=== PATIENT | female | born 1960 | race Caucasian/White ===

== ENCOUNTER → 2021-01-09 | Outpatient (CLI) | payer OTHER ==
[~2021-01-09] MED LIST: AMLODIPINE BESYL5 MG PO; ATENOLOL25 MG PO; CHILDREN'S ASPI81 MG PO; HYDROCODON-ACE1 EAC2 PO; LISINOPRIL40 MG PO; TRAZODONE HCL150 MG PO; WELLBUTRIN XL150 MG PO
== END ==
LOC: KOH-I 01-02 15:30
DX: M23.41 Loose body in knee, right knee (principal); M17.11 Unilateral primary osteoarthritis, right knee
CPT/HCPCS: 73700

== ENCOUNTER → 2021-02-20 | Outpatient (CLI) | payer OTHER | LOC: OPSV 10:00 | DX: Z01.812 Encounter for preprocedural laboratory examination (principal); Z53.8 Procedure and treatment not carried out for other reasons; M17.11 Unilateral primary osteoarthritis, right knee | CPT/HCPCS: G0463 ==

== ENCOUNTER → 2021-03-01 | Outpatient (CLI) | payer SELFPAY ==
[~2021-03-01] MED LIST changes: +CLINDAMYCIN HC300 MG PO; +ELIQUIS 5 MG TAB5 MG PO; +ELIQUIS5 MG PO; +LISINOPRIL-HCT1 EAC2 PO; +ROXICODONE15 MG PO
[2021-03-01 10:40] LABS: RED BLOOD COUNT 4.94 M/UL (4.00-5.10); WHITE BLOOD COUNT 8.1 K/UL (4.5-11.0)
[2021-03-01 10:58] LABS: BUN/CREATININE RATIO 13 (0-10)
== END ==
LOC: OPSV2 09:57
PROVIDERS: Orthopaedic Surgery
DX: Z01.818 Encounter for other preprocedural examination (principal); M17.11 Unilateral primary osteoarthritis, right knee
CPT/HCPCS: 36415; 71046; 80048; 81001; 85025; 87081; 93005

== ENCOUNTER → 2021-03-12 | Outpatient (CLI) | payer OTHER ==
[2021-03-12 10:27] LABS: BUN/CREATININE RATIO 11 (0-10)
== END ==
LOC: LAB 09:44
PROVIDERS: Orthopaedic Surgery
DX: Z01.812 Encounter for preprocedural laboratory examination (principal)
CPT/HCPCS: 36415; 80048; 86850; 86900; 86901

== ENCOUNTER 2021-03-13 06:49 | Inpatient (IN) | payer OTHER ==
[~2021-03-13] VITALS: Ht 157.5 cm; Wt 77.1 kg
[~2021-03-13 06:49] MED LIST changes: -CLINDAMYCIN HC300 MG PO; -ELIQUIS 5 MG TAB5 MG PO; -ELIQUIS5 MG PO; -HYDROCODON-ACE1 EAC2 PO; -LISINOPRIL-HCT1 EAC2 PO; -ROXICODONE15 MG PO; -TRAZODONE HCL150 MG PO
[2021-03-13] MEDS ORDERED: TRAZODONE HCL150 MG PO (07:22)
[2021-03-13] MEDS ORDERED: HYDROCODON-ACE1 EAC2 PO (14:13)
[2021-03-14 04:14] LABS: HEMOGLOBIN 11.1 gm/dl (12.3-15.3); RED BLOOD COUNT 3.72 M/UL (4.00-5.10); WHITE BLOOD COUNT 16.7 K/UL (4.5-11.0)
[2021-03-15 03:02] LABS: HEMOGLOBIN 10.1 gm/dl (12.3-15.3)
[2021-03-15 03:04] LABS: RED BLOOD COUNT 3.34 M/UL (4.00-5.10); WHITE BLOOD COUNT 11.6 K/UL (4.5-11.0)
[2021-03-16 03:13] LABS: HEMOGLOBIN 10.5 gm/dl (12.3-15.3); RED BLOOD COUNT 3.51 M/UL (4.00-5.10); WHITE BLOOD COUNT 11.6 K/UL (4.5-11.0)
[2021-03-16 03:35] LABS: BUN/CREATININE RATIO 16 (0-10)
[2021-03-17 03:13] LABS: HEMOGLOBIN 10.1 gm/dl (12.3-15.3); RED BLOOD COUNT 3.41 M/UL (4.00-5.10); WHITE BLOOD COUNT 10.2 K/UL (4.5-11.0)
[2021-03-17 03:30] LABS: BUN/CREATININE RATIO 14 (0-10)
[2021-03-18 05:22] LABS: HEMOGLOBIN 10.4 gm/dl (12.3-15.3); RED BLOOD COUNT 3.48 M/UL (4.00-5.10); WHITE BLOOD COUNT 9.1 K/UL (4.5-11.0)
[2021-03-18 05:35] LABS: BUN/CREATININE RATIO 13 (0-10)
[2021-03-19 04:16] LABS: HEMOGLOBIN 10.3 gm/dl (12.3-15.3); RED BLOOD COUNT 3.44 M/UL (4.00-5.10); WHITE BLOOD COUNT 9.3 K/UL (4.5-11.0)
[2021-03-19 04:48] LABS: BUN/CREATININE RATIO 14 (0-10)
[2021-03-20 06:33] LABS: BUN/CREATININE RATIO 14 (0-10)
[2021-03-20] MEDS ORDERED: ELIQUIS 5 MG TAB5 MG PO (17:18)
[2021-03-20] MEDS ORDERED: ELIQUIS5 MG PO (17:18)
[2021-05-03] MEDS ORDERED: HYDROCODON-ACE1 EAC2 PO (09:33)
[2021-05-03] MEDS ORDERED: LISINOPRIL-HCT1 EAC2 PO (09:34)
[2021-05-05] MEDS ORDERED: HYDROCODON-ACE1 EAC2 PO (08:40)
[2021-05-17] MEDS ORDERED: ROXICODONE15 MG PO (08:47)
== END 2021-03-20 17:51 | disposition home health service (06) | DRG 469 ==
LOC: OR 06:49 → EDSTATUS 09:15 → M/S 17:07 → OR 17:07 → M/S 03-15 14:05
PROVIDERS: Internal Medicine; ADMIT Orthopaedic Surgery
PROC: 0SRC0J9 Replacement of Right Knee Joint with Synthetic Substitute, Cemented, Open Approach (ICD-10-PCS; principal; 2021-03-13 09:15)
PROC: B24BZZ4 Ultrasonography of Heart with Aorta, Transesophageal (ICD-10-PCS; 2021-03-15)
DX: M17.11 Unilateral primary osteoarthritis, right knee (principal); J96.01 Acute respiratory failure with hypoxia; I26.99 Other pulmonary embolism without acute cor pulmonale; N17.9 Acute kidney failure, unspecified; J98.11 Atelectasis; Z20.822 Contact with and (suspected) exposure to COVID-19; M23.41 Loose body in knee, right knee; G89.29 Other chronic pain; R11.2 Nausea with vomiting, unspecified; I10 Essential (primary) hypertension; F41.9 Anxiety disorder, unspecified; F32.9 Major depressive disorder, single episode, unspecified; I07.1 Rheumatic tricuspid insufficiency; Z96.651 Presence of right artificial knee joint; Z90.49 Acquired absence of other specified parts of digestive tract; Z88.0 Allergy status to penicillin; Z88.1 Allergy status to other antibiotic agents; Z79.82 Long term (current) use of aspirin; Z79.899 Other long term (current) drug therapy; Z56.0 Unemployment, unspecified; Z90.710 Acquired absence of both cervix and uterus; Z82.49 Family history of ischemic heart disease and other diseases of the circulatory system; Z88.2 Allergy status to sulfonamides
CPT/HCPCS: ECHO; 36415; 71045; 71275; 73560; 80048; 81001; 83880; 85025; 85027; 85379; 86850; 86900; 86901; 93306; 93971; 97110-GP-CQ; 97116-GP-CQ; 97161; 97166; 97535; C1776; J0360; J1100; J1170; J1885; J1940; J2001; J2250; J2270; J2405; J2550; J2704; J2795; J3010; J3370; J7120; Q9967

== ENCOUNTER 2021-03-21 16:29 | Observation (INO) | payer OTHER ==
[~2021-03-21] VITALS: Ht 157.5 cm; Wt 82.6 kg
[~2021-03-21 16:29] MED LIST changes: +ELIQUIS 5 MG TAB5 MG PO; +ELIQUIS5 MG PO; +HYDROCODON-ACE1 EAC2 PO; +TRAZODONE HCL150 MG PO
[2021-03-21 19:40] LABS: HEMOGLOBIN 11.6 gm/dl (12.3-15.3)
[2021-03-21 19:43] LABS: RED BLOOD COUNT 3.85 M/UL (4.00-5.10); WHITE BLOOD COUNT 12.3 K/UL (4.5-11.0)
[2021-03-21 20:12] LABS: BUN/CREATININE RATIO 14 (0-10)
[2021-03-22 03:41] LABS: HEMOGLOBIN 10.7 gm/dl (12.3-15.3); RED BLOOD COUNT 3.58 M/UL (4.00-5.10); WHITE BLOOD COUNT 10.3 K/UL (4.5-11.0)
[2021-03-22 04:39] LABS: BUN/CREATININE RATIO 15 (0-10)
[2021-03-23 07:02] LABS: HEMOGLOBIN 10.7 gm/dl (12.3-15.3); RED BLOOD COUNT 3.76 M/UL (4.00-5.10); WHITE BLOOD COUNT 9.3 K/UL (4.5-11.0)
[2021-03-23 07:05] LABS: BUN/CREATININE RATIO 13 (0-10)
[2021-03-23] MEDS ORDERED: CLINDAMYCIN HC300 MG PO (13:59)
[2021-05-03] MEDS ORDERED: HYDROCODON-ACE1 EAC2 PO (09:33)
[2021-05-03] MEDS ORDERED: LISINOPRIL-HCT1 EAC2 PO (09:34)
[2021-05-05] MEDS ORDERED: HYDROCODON-ACE1 EAC2 PO (08:40)
[2021-05-17] MEDS ORDERED: ROXICODONE15 MG PO (08:47)
== END 2021-03-23 17:10 | disposition home or self-care (01) ==
LOC: ER1 16:29 → CDU 21:12 → M/S 21:12
PROVIDERS: Emergency Medicine; Internal Medicine; ADMIT Internal Medicine
DX: L03.115 Cellulitis of right lower limb (principal); I10 Essential (primary) hypertension; F41.9 Anxiety disorder, unspecified; M19.90 Unspecified osteoarthritis, unspecified site; F32.9 Major depressive disorder, single episode, unspecified; Z96.651 Presence of right artificial knee joint; Z86.711 Personal history of pulmonary embolism; Z88.0 Allergy status to penicillin; Z88.2 Allergy status to sulfonamides; Z20.822 Contact with and (suspected) exposure to COVID-19
CPT/HCPCS: 36415; 73562; 80048; 80053; 80202; 81001; 82607; 82728; 82746; 83540; 83550; 83605; 83735; 84466; 84703; 85025; 85027; 85652; 86140; 87040; 93971; 96374; 96375; 96376; 97116-GP-CQ; 97161; 99284; G0378; J1170; J2270; J2405; J3370; J7070; U0002

== ENCOUNTER → 2021-04-04 | Outpatient (CLI) | payer OTHER ==
[~2021-04-04] MED LIST changes: +CLINDAMYCIN HC300 MG PO
== END ==
LOC: US 13:30
DX: M79.661 Pain in right lower leg (principal); Z86.711 Personal history of pulmonary embolism; Z96.659 Presence of unspecified artificial knee joint
CPT/HCPCS: 93971

== ENCOUNTER → 2021-04-18 | Outpatient (CLI) | payer OTHER ==
[2021-04-18 17:14] LABS: RED BLOOD COUNT 4.46 M/UL (4.00-5.10); WHITE BLOOD COUNT 8.6 K/UL (4.5-11.0)
== END ==
LOC: LAB 16:19
PROVIDERS: Nurse Practitioner
DX: T84.84XA Pain due to internal orthopedic prosthetic devices, implants and grafts, initial encounter (principal); M25.461 Effusion, right knee
CPT/HCPCS: 36415; 85027; 85652; 86140

== ENCOUNTER 2021-04-26 12:09 | Emergency (ER) | payer OTHER ==
[2021-04-26 13:05] LABS: HEMOGLOBIN 13.1 gm/dl (12.3-15.3); RED BLOOD COUNT 4.39 M/UL (4.00-5.10); WHITE BLOOD COUNT 8.9 K/UL (4.5-11.0)
[2021-04-26 13:24] LABS: BUN/CREATININE RATIO 12 (0-10)
== END 2021-04-26 16:50 | disposition home or self-care (01) ==
LOC: ER1 12:09
PROVIDERS: Physician Assistant Medical
DX: M25.561 Pain in right knee (principal); Z96.651 Presence of right artificial knee joint; I10 Essential (primary) hypertension; Z86.711 Personal history of pulmonary embolism; Z88.0 Allergy status to penicillin; Z88.8 Allergy status to other drugs, medicaments and biological substances; Z79.82 Long term (current) use of aspirin; Z79.01 Long term (current) use of anticoagulants; Z90.710 Acquired absence of both cervix and uterus
CPT/HCPCS: 73564; 80053; 83605; 85025; 85652; 86140; 87040; 99283

== ENCOUNTER → 2021-05-05 | Day surgery (SDC) | payer OTHER ==
[~2021-05-05] MED LIST changes: +LISINOPRIL-HCT1 EAC2 PO
== END | disposition home or self-care (01) ==
LOC: OR 05:20
DX: M25.661 Stiffness of right knee, not elsewhere classified (principal); M76.9 Unspecified enthesopathy, lower limb, excluding foot; I26.99 Other pulmonary embolism without acute cor pulmonale; I10 Essential (primary) hypertension; F41.9 Anxiety disorder, unspecified; F32.9 Major depressive disorder, single episode, unspecified; F41.0 Panic disorder [episodic paroxysmal anxiety]; G43.909 Migraine, unspecified, not intractable, without status migrainosus; K57.30 Diverticulosis of large intestine without perforation or abscess without bleeding; Z96.651 Presence of right artificial knee joint; Z79.01 Long term (current) use of anticoagulants; Z79.899 Other long term (current) drug therapy; Z79.891 Long term (current) use of opiate analgesic; Z79.82 Long term (current) use of aspirin; Z90.710 Acquired absence of both cervix and uterus; Z88.0 Allergy status to penicillin; Z88.1 Allergy status to other antibiotic agents
CPT/HCPCS: 73562; 76000; J0592; J1100; J1170; J2001; J2250; J2704; J2795; J3010; J7120

== ENCOUNTER 2021-05-22 14:59 | Emergency (ER) | payer OTHER ==
[~2021-05-22 14:59] MED LIST changes: +ROXICODONE15 MG PO
[2021-05-22 16:31] LABS: HEMOGLOBIN 13.5 gm/dl (12.3-15.3); RED BLOOD COUNT 4.58 M/UL (4.00-5.10); WHITE BLOOD COUNT 14.7 K/UL (4.5-11.0)
[2021-05-22] MEDS ORDERED: ELIQUIS5 MG PO (19:40)
== END 2021-05-22 19:50 | disposition home or self-care (01) ==
LOC: ER1 14:59
PROVIDERS: Emergency Medicine
DX: R06.00 Dyspnea, unspecified (principal); R10.9 Unspecified abdominal pain; F41.9 Anxiety disorder, unspecified; E87.6 Hypokalemia; Z86.711 Personal history of pulmonary embolism; Z20.822 Contact with and (suspected) exposure to COVID-19
CPT/HCPCS: 71045; 80053; 81001; 82550; 82553; 83690; 83874; 84484; 85025; 85379; 99285; Q9967; U0002

== ENCOUNTER → 2021-06-09 | Outpatient (CLI) | payer OTHER | LOC: KOH-I 11:59 | DX: M54.50 Low back pain, unspecified (principal); M51.36 Other intervertebral disc degeneration, lumbar region | CPT/HCPCS: 72100 ==

== ENCOUNTER 2021-06-20 16:24 | Emergency (ER) | payer OTHER ==
[2021-06-20 18:22] LABS: RED BLOOD COUNT 4.63 M/UL (4.00-5.10); WHITE BLOOD COUNT 8.9 K/UL (4.5-11.0)
[2021-06-20 18:44] LABS: BUN/CREATININE RATIO 10 (0-10)
[2021-06-20] MEDS ORDERED: IBUPROFEN600 MG PO (19:02)
== END 2021-06-20 19:35 | disposition home or self-care (01) ==
LOC: ER1 16:24
PROVIDERS: Physician Assistant Medical
DX: M25.561 Pain in right knee (principal); I10 Essential (primary) hypertension; Z79.82 Long term (current) use of aspirin; Z88.1 Allergy status to other antibiotic agents; Z79.01 Long term (current) use of anticoagulants; Z96.651 Presence of right artificial knee joint
CPT/HCPCS: 80053; 85025; 85652; 86140; 93970; 96374; 96375; 99284; J2270; J2405

== ENCOUNTER 2021-06-28 15:54 | Emergency (ER) | payer OTHER ==
[~2021-06-28 15:54] MED LIST changes: +IBUPROFEN600 MG PO
[2021-06-28] MEDS ORDERED: TYLENOL325 MG PO (18:15)
[2021-06-28] MEDS ORDERED: Voltaren Gel 1 % TOP (18:15)
== END 2021-06-28 19:01 | disposition home or self-care (01) ==
LOC: ER1 15:54
DX: S83.91XA Sprain of unspecified site of right knee, initial encounter (principal); I10 Essential (primary) hypertension; Z96.651 Presence of right artificial knee joint; Z88.0 Allergy status to penicillin; Z88.1 Allergy status to other antibiotic agents; Z88.2 Allergy status to sulfonamides; Z79.01 Long term (current) use of anticoagulants; Z79.899 Other long term (current) drug therapy; W10.9XXA Fall (on) (from) unspecified stairs and steps, initial encounter
CPT/HCPCS: 29530; 73080; 73562; 73590; 73610; 96372; 99283; J1885

== ENCOUNTER 2021-12-05 14:37 | Inpatient (IN) | payer OTHER ==
[~2021-12-05] VITALS: Ht 157.5 cm; Wt 72.7 kg
[~2021-12-05 14:37] MED LIST changes: -AMLODIPINE BESYL5 MG PO; +ASPIRIN EC81 MG PO; -CHILDREN'S ASPI81 MG PO; +CIPRO500 MG PO; +CLEOCIN HCL300 MG PO; +HYDROCODON-ACE1 EAC4 PO; -LISINOPRIL-HCT1 EAC2 PO; +TYLENOL325 MG PO; +Voltaren Gel 1 % TOP; -WELLBUTRIN XL150 MG PO; +ZOFRAN 4 MG TAB4 MG PO
[2021-12-05 16:04] LABS: HEMOGLOBIN 13.5 gm/dl (12.3-15.3); RED BLOOD COUNT 4.58 M/UL (4.00-5.10); WHITE BLOOD COUNT 11.5 K/UL (4.5-11.0)
[2021-12-05 16:53] LABS: BUN/CREATININE RATIO 12 (0-10)
--- NOTE | 2021-12-06 01:03 | NUR ---
PATIENT ASKED THE TECH KAREN TO SPEAK TO A CHARGE NURSE REGARDING PAIN MEDICATION. I WENT AND SPOKE WITH THE PATIENT, SHE IS RATING HER PAIN 8/10 ON A NUMERIC SCALE. SHE GETS MORPHINE 2 MG Q6HP, WITH THE NEXT DOSE NOT BEING DUE UNTIL [address] CASTELLANOS OF THE PATIENTS PAIN AND THAT SHE IS REQUESTING SOMETHING MORE. NO NEW ORDERS WERE GIVEN. NOTIFIED EXTERNAL GRINDER TOOL OF SITUATION. EXPLAINED TO PATIENT THAT I WAS NOT GIVEN NEW ORDERS FOR PAIN MEDICATION. PATIENT VERBALIZED UNDERSTANDING.
[2021-12-06 03:05] LABS: HEMOGLOBIN 12.3 gm/dl (12.3-15.3); RED BLOOD COUNT 4.27 M/UL (4.00-5.10); WHITE BLOOD COUNT 9.9 K/UL (4.5-11.0)
[2021-12-06 03:32] LABS: BUN/CREATININE RATIO 12 (0-10)
[2021-12-06] MEDS ORDERED: AMLODIPINE BESYL5 MG PO (10:37)
[2021-12-06] MEDS ORDERED: WELLBUTRIN XL150 MG PO (10:38)
--- NOTE | 2021-12-06 14:36 | NUR ---
1436- PT STATES HYDROCODONE 7.5 MG IS NOT WORKING FOR HER PAIN. NOTIFIED DR MCCONNELL. ORDER FOR ONE TIME DOSE OF DILAUDID 0.5MG ONCE. WILL CONTINUE TO MONITOR.
[2021-12-06] MEDS ORDERED: ALENDRONATE SOD70 MG PO (14:51)
[2021-12-06] MEDS ORDERED: HYDROCHLOROTHIA25 MG PO (14:52)
[2021-12-06] MEDS ORDERED: LORAZEPAM0.5 MG PO (14:54)
[2021-12-06] MEDS ORDERED: SERTRALINE HCL25 MG PO (14:54)
[2021-12-06] MEDS ORDERED: CLINDAMYCIN HC300 MG PO (15:19)
[2021-12-06] MEDS ORDERED: CIPROFLOXACIN500 M1 PO (15:19)
[2021-12-07 03:37] LABS: HEMOGLOBIN 12.5 gm/dl (12.3-15.3); RED BLOOD COUNT 4.32 M/UL (4.00-5.10)
[2021-12-07 03:45] LABS: WHITE BLOOD COUNT 6.7 K/UL (4.5-11.0)
[2021-12-07 04:30] LABS: BUN/CREATININE RATIO 10 (0-10)
[2021-12-08 03:18] LABS: HEMOGLOBIN 12.5 gm/dl (12.3-15.3); RED BLOOD COUNT 4.24 M/UL (4.00-5.10); WHITE BLOOD COUNT 7.1 K/UL (4.5-11.0)
[2021-12-08 03:36] LABS: BUN/CREATININE RATIO 8 (0-10)
[2021-12-08] MEDS ORDERED: HYDROCODON-ACE1 EAC4 PO (10:14)
[2021-12-08] MEDS ORDERED: ZOFRAN ODT 4 MG4 MG SL (10:14)
== END 2021-12-08 11:30 | disposition home or self-care (01) | DRG 392 ==
LOC: ER1 14:37 → CDU 18:09 → M/S 18:09
PROVIDERS: Emergency Medicine; Physician Assistant; ADMIT Internal Medicine
DX: K57.32 Diverticulitis of large intestine without perforation or abscess without bleeding (principal); I10 Essential (primary) hypertension; E66.01 Morbid (severe) obesity due to excess calories; F32.A Depression, unspecified; Z20.822 Contact with and (suspected) exposure to COVID-19; Z96.651 Presence of right artificial knee joint; Z86.711 Personal history of pulmonary embolism; Z79.01 Long term (current) use of anticoagulants; Z90.49 Acquired absence of other specified parts of digestive tract; Z98.890 Other specified postprocedural states; Z90.710 Acquired absence of both cervix and uterus; Z88.0 Allergy status to penicillin; Z88.1 Allergy status to other antibiotic agents; Z83.3 Family history of diabetes mellitus; Z68.29 Body mass index [BMI] 29.0-29.9, adult
CPT/HCPCS: 36415; 80048; 80053; 81001; 83690; 83735; 85025; 96374; 96375; 96376; 99285; J0360; J1170; J1956; J2185; J2270; J2405; Q9967; U0002

== ENCOUNTER → 2021-12-13 | Outpatient (CLI) | payer OTHER ==
[~2021-12-13] MED LIST changes: +ALENDRONATE SOD70 MG PO; +AMLODIPINE BESYL5 MG PO; +CIPROFLOXACIN500 M1 PO; +HYDROCHLOROTHIA25 MG PO; +LORAZEPAM0.5 MG PO; +SERTRALINE HCL25 MG PO; +WELLBUTRIN XL150 MG PO; +ZOFRAN ODT 4 MG4 MG SL
[2021-12-13 10:33] LABS: HEMOGLOBIN 12.8 gm/dl (12.3-15.3); RED BLOOD COUNT 4.47 M/UL (4.00-5.10); WHITE BLOOD COUNT 5.7 K/UL (4.5-11.0)
[2021-12-13 10:49] LABS: BUN/CREATININE RATIO 10 (0-10)
== END ==
LOC: OPSV2 09:00
PROVIDERS: Anesthesiology
DX: Z01.818 Encounter for other preprocedural examination (principal); I10 Essential (primary) hypertension
CPT/HCPCS: 36415; 80048; 85025; 93005

== ENCOUNTER 2021-12-19 05:00 | Inpatient (IN) | payer OTHER ==
[~2021-12-19] VITALS: Ht 157.5 cm; Wt 74.4 kg
--- NOTE | 2021-12-19 15:17 | NUR ---
CONTACTED AT THIS TIME TO LET HIM KNOW THAT THE PATIENT AHD MULTIPLE BLOOD CLOTS IN HER STOOL AT THIS TIME. HE STATES THAT THERE IS NOTHING TO DO AT THIS TIME. PATIENT VITALS STABLE.
--- NOTE | 2021-12-20 03:40 | NUR ---
FOUND BED BUG IN ROOM PT STATED HER FAMILY FOUND ONE AND FLUSHED IT DOWN THE TOILET. MARLYN WHEAT NOTIFIED AND APPROVED PT TO VISIT THIS AM. THE PATIENT WAS MADE AWARE AND EDUCATED ON CONTACT PRECAUTIONS.
--- NOTE | 2021-12-21 18:13 | NUR ---
PATIENT CALLED ME TO HER ROOM AT THIS TIME DUE TO A BLOODY BOWEL MOVEMENT. PATIENT IS NOTED TO HAVE A MODERATE AMOUNT OF BLOOD IN THE TOILET. CONTACTED AT THIS TIME AND HE STATES TO TELL THE PATIENT NOT TO WORRY AT THIS TIME AND GAVE NO NEW ORDERS. HE STATES TO MONITOR VITAL SIGNS FOR CHAGNES ONLY.
[2021-12-22] MEDS ORDERED: HYDROCODON-ACE1 EAC4 PO (08:54)
== END 2021-12-22 12:04 | disposition home or self-care (01) | DRG 331 ==
LOC: OR 05:00 → MED SURG 4 05:01 → OR 09:30 → MED SURG 4 13:40 → OR 13:40 → MED SURG 4 12-22 12:04
PROVIDERS: ADMIT Surgery
PROC: 0DBN4ZZ Excision of Sigmoid Colon, Percutaneous Endoscopic Approach (ICD-10-PCS; 2021-12-19)
PROC: 0DBM4ZZ Excision of Descending Colon, Percutaneous Endoscopic Approach (ICD-10-PCS; principal; 2021-12-19 09:30)
DX: K57.32 Diverticulitis of large intestine without perforation or abscess without bleeding (principal); F41.9 Anxiety disorder, unspecified; M19.91 Primary osteoarthritis, unspecified site; F32.A Depression, unspecified; I10 Essential (primary) hypertension; G43.909 Migraine, unspecified, not intractable, without status migrainosus; K21.9 Gastro-esophageal reflux disease without esophagitis; Z96.651 Presence of right artificial knee joint; K76.0 Fatty (change of) liver, not elsewhere classified; M17.10 Unilateral primary osteoarthritis, unspecified knee; Z20.822 Contact with and (suspected) exposure to COVID-19; G89.18 Other acute postprocedural pain; Z88.8 Allergy status to other drugs, medicaments and biological substances; Z88.0 Allergy status to penicillin; Z79.82 Long term (current) use of aspirin; Z79.899 Other long term (current) drug therapy; Z90.49 Acquired absence of other specified parts of digestive tract; Z90.710 Acquired absence of both cervix and uterus; Z98.890 Other specified postprocedural states; Z90.89 Acquired absence of other organs; Z82.49 Family history of ischemic heart disease and other diseases of the circulatory system; Z83.3 Family history of diabetes mellitus; Z82.61 Family history of arthritis; Z86.73 Personal history of transient ischemic attack (TIA), and cerebral infarction without residual deficits; Z86.718 Personal history of other venous thrombosis and embolism; Z87.11 Personal history of peptic ulcer disease; Z88.2 Allergy status to sulfonamides
CPT/HCPCS: J1100; J1170; J1644; J2001; J2185; J2250; J2270; J2370; J2405; J2704; J3010; J7120

== ENCOUNTER 2021-12-25 12:07 | Inpatient (IN) | payer OTHER ==
[~2021-12-25] VITALS: Ht 157.5 cm; Wt 74.4 kg
[2021-12-25 13:38] LABS: HEMOGLOBIN 10.6 gm/dl (12.3-15.3); RED BLOOD COUNT 3.6 M/UL (4.00-5.10); WHITE BLOOD COUNT 12.9 K/UL (4.5-11.0)
[2021-12-25 13:57] LABS: BUN/CREATININE RATIO 12 (0-10)
[2021-12-25] MEDS ORDERED: ONDANSETRON ODT4 MG PO (16:44)
[2021-12-25] MEDS ORDERED: HYDROCHLOROTHIA25 MG PO (16:45)
[2021-12-25] MEDS ORDERED: LORAZEPAM0.5 MG PO (16:47)
[2021-12-25] MEDS ORDERED: ASPIRIN EC81 MG PO (16:48)
[2021-12-26 08:12] LABS: RED BLOOD COUNT 3.39 M/UL (4.00-5.10)
[2021-12-26 08:13] LABS: WHITE BLOOD COUNT 8.2 K/UL (4.5-11.0)
[2021-12-26 08:39] LABS: BUN/CREATININE RATIO 10 (0-10)
--- NOTE | 2021-12-28 13:52 | NUR ---
reported to dr. moses patient vomiting episode and acknowledged. received new order
== END 2021-12-29 14:56 | disposition home or self-care (01) | DRG 357 ==
LOC: ER1 12:07 → CDU 16:11 → M/S 21:16
PROVIDERS: Emergency Medicine; ADMIT Surgery
PROC: 0W9F0ZZ Drainage of Abdominal Wall, Open Approach (ICD-10-PCS; principal; 2021-12-25)
DX: K94.02 Colostomy infection (principal); L03.311 Cellulitis of abdominal wall; Y83.8 Other surgical procedures as the cause of abnormal reaction of the patient, or of later complication, without mention of misadventure at the time of the procedure; I10 Essential (primary) hypertension; E87.6 Hypokalemia; F32.A Depression, unspecified; Z90.49 Acquired absence of other specified parts of digestive tract; Z88.2 Allergy status to sulfonamides; Z88.0 Allergy status to penicillin; Z98.890 Other specified postprocedural states
CPT/HCPCS: 36415; 80048; 80053; 81001; 83605; 85025; 87040; 87070; 87205; 96374; 96375; 96376; 99284; J2185; J2270; J2405; J2704; J7030; J7050; Q9967; U0002

== ENCOUNTER 2022-01-10 12:57 | Emergency (ER) | payer OTHER ==
[~2022-01-10 12:57] MED LIST changes: +ONDANSETRON ODT4 MG PO
[2022-01-10 14:37] LABS: HEMOGLOBIN 11.7 gm/dl (12.3-15.3); RED BLOOD COUNT 4.05 M/UL (4.00-5.10); WHITE BLOOD COUNT 10.1 K/UL (4.5-11.0)
[2022-01-10 15:04] LABS: BUN/CREATININE RATIO 14 (0-10)
== END 2022-01-10 17:50 | disposition home or self-care (01) ==
LOC: ER1 12:57
PROVIDERS: Preventive Medicine Occupational Medicine
DX: G89.28 Other chronic postprocedural pain (principal); R10.9 Unspecified abdominal pain; Z20.822 Contact with and (suspected) exposure to COVID-19; Z88.0 Allergy status to penicillin
CPT/HCPCS: 0240U; 71045; 80053; 80307; 81001; 82550; 82553; 83605; 83690; 83880; 84484; 85025; 85379; 85652; 86140; 87086; 93005; 96374; 96375; 96376; 99285; J1170; J2405; Q9967

== ENCOUNTER 2022-01-30 17:51 | Emergency (ER) | payer OTHER | END 2022-01-30 19:28 | disposition left against medical advice (07) | LOC: ER1 17:51 | DX: Z53.21 Procedure and treatment not carried out due to patient leaving prior to being seen by health care provider (principal) ==

== ENCOUNTER 2022-01-31 08:57 | Emergency (ER) | payer OTHER ==
[2022-01-31 10:49] LABS: HEMOGLOBIN 12.5 gm/dl (12.3-15.3); RED BLOOD COUNT 4.35 M/UL (4.00-5.10); WHITE BLOOD COUNT 5.8 K/UL (4.5-11.0)
[2022-01-31 11:12] LABS: BUN/CREATININE RATIO 10 (0-10)
== END 2022-01-31 14:10 | disposition home or self-care (01) ==
LOC: ER1 08:57
PROVIDERS: Nurse Practitioner
DX: R10.31 Right lower quadrant pain (principal); R10.813 Right lower quadrant abdominal tenderness; I10 Essential (primary) hypertension; Z90.89 Acquired absence of other organs; Z90.49 Acquired absence of other specified parts of digestive tract; Z88.0 Allergy status to penicillin; Z88.8 Allergy status to other drugs, medicaments and biological substances
CPT/HCPCS: 80053; 81001; 82150; 83605; 83690; 85025; 87086; 96374; 96375; 99284; J1885; J2270; J2405; Q9967

== ENCOUNTER 2022-04-09 07:34 | Emergency (ER) | payer OTHER ==
[2022-04-09 08:09] LABS: HEMOGLOBIN 13.1 gm/dl (12.3-15.3); RED BLOOD COUNT 4.76 M/UL (4.00-5.10); WHITE BLOOD COUNT 6.7 K/UL (4.5-11.0)
[2022-04-09] MEDS ORDERED: PHENERGAN 25 MG25 M1 PO (13:36)
== END 2022-04-09 14:10 | disposition home or self-care (01) ==
LOC: ER1 07:34
PROVIDERS: Family Medicine
DX: K56.7 Ileus, unspecified (principal); I10 Essential (primary) hypertension; Z79.01 Long term (current) use of anticoagulants; Z88.0 Allergy status to penicillin; Z88.1 Allergy status to other antibiotic agents
CPT/HCPCS: 80053; 81001; 83605; 83690; 85025; 96374; 96375; 99284; J1885; J2270; J2405; Q9967